=== PATIENT | female | born 1995 | race Caucasian/White ===

== ENCOUNTER 2017-06-24 05:47 | Inpatient (IN) | payer OTHER ==
[2017-06-23 13:35] LABS: ABSOLUTE LYMPHOCYTES (AUTO) 1.6 10^3/uL (0.5-4.7); ABSOLUTE MONOCYTES (AUTO) 0.7 10^3/uL (0.1-1.4); ABSOLUTE NEUT (AUTO) 8.7 10^3/uL (1.7-8.2); BASOPHILS % (AUTO) 0.4 % (0-2); EOSINOPHILS % (AUTO) 0.4 % (0-6); HEMATOCRIT 37.5 % (36.0-47.0); HEMOGLOBIN 12.9 g/dL (12.0-15.5); LYMPHOCYTES % (AUTO) 14.6 % (13-45); MEAN CORPUSCULAR HEMOGLOBIN 31.1 pg (27.0-33.4); MEAN CORPUSCULAR HGB CONC 34.3 g/dL (32.0-36.0); MEAN CORPUSCULAR VOLUME 91 fl (80-97); MONOCYTES % (AUTO) 6.4 % (3-13); PLATELET COUNT 251 10^3/uL (150-450); RED BLOOD COUNT 4.13 10^6/uL (3.72-5.28); RED CELL DISTRIBUTION WIDTH 13.2 % (11.5-14.0); SEGMENTED NEUTROPHILS % (AUTO) 78.2 % (42-78); TOTAL CELLS COUNTED % (AUTO) 100 %; WHITE BLOOD COUNT 11.2 10^3/uL (4.0-10.5)
[2017-06-23 13:42] LABS: APPEARANCE,URINE CLEAR; BILIRUBIN,URINE NEGATIVE (NEGATIVE); COLOR,URINE STRAW; GLUCOSE, URINE NEGATIVE (NEGATIVE); KETONES,URINE NEGATIVE (NEGATIVE); LEUKOCYTE ESTERASE,URINE NEGATIVE (NEGATIVE); NITRITE,URINE NEGATIVE (NEGATIVE); PROTEIN,URINE NEGATIVE (NEGATIVE); URINE SPECIFIC GRAVITY 1.003; UROBILINOGEN,URINE NEGATIVE mg/dL (<2.0)
[2017-06-23 13:55] LABS: URINE AMPHETAMINES SCREEN NEGATIVE; URINE BARBITURATES SCREEN NEGATIVE; URINE BENZODIAZEPINES SCREEN NEGATIVE; URINE COCAINE SCREEN NEGATIVE; URINE MARIJUANA (THC) SCREEN NEGATIVE; URINE METHADONE SCREEN NEGATIVE; URINE PHENCYCLIDINE SCREEN NEGATIVE
[2017-06-23 14:56] LABS: CHLAM PCR NOT DETECTED (NOT DETECT); GON PCR NOT DETECTED (NOT DETECT)
[2017-06-24] MEDS ORDERED: RINGERS SOLUTION,LACTATED 1,000 ML IV ONE (06:02)
[2017-06-24 06:18] LABS: APPEARANCE,URINE SLIGHTLY-CLOUDY; BILIRUBIN,URINE NEGATIVE (NEGATIVE); COLOR,URINE YELLOW; GLUCOSE, URINE NEGATIVE (NEGATIVE); KETONES,URINE NEGATIVE (NEGATIVE); LEUKOCYTE ESTERASE,URINE NEGATIVE (NEGATIVE); NITRITE,URINE NEGATIVE (NEGATIVE); PROTEIN,URINE NEGATIVE (NEGATIVE); URINE SPECIFIC GRAVITY 1.019; UROBILINOGEN,URINE NEGATIVE mg/dL (<2.0)
[2017-06-24 06:33] LABS: URINE AMPHETAMINES SCREEN NEGATIVE; URINE BARBITURATES SCREEN NEGATIVE; URINE BENZODIAZEPINES SCREEN NEGATIVE; URINE COCAINE SCREEN NEGATIVE; URINE MARIJUANA (THC) SCREEN NEGATIVE; URINE METHADONE SCREEN NEGATIVE; URINE PHENCYCLIDINE SCREEN NEGATIVE
[2017-06-24] MEDS ORDERED: BUPIVACAINE HCL 0.25 % INJ/PF (2.5 MG/1 ML) 30 ML VIAL ONE (07:55)
[2017-06-24] MEDS ORDERED: FENTANYL/BUPIVACAINE/NS/PF 0 MCG/0 ML RTUINJ EPI ONE (07:55)
[2017-06-24] MEDS ORDERED: EPHEDRINE SULFATE INJ 50 MG/1 ML AMPULE ONE ×3 (07:55→13:15)
[2017-06-24] MEDS ORDERED: LIDOCAINE 2% INJ-PF (20 MG/ML) 10 ML AMPUL ONE (08:02)
[2017-06-24] MEDS ORDERED: CEFAZOLIN 2 GM/D5W RTU 2 GM/50 ML RTUPB IV ONE ×2 (08:11→13:06)
[2017-06-24] MEDS ORDERED: TERBUTALINE SULFATE INJ/PF 1 MG/1 ML SDV SUBCUT ONE (08:47)
[2017-06-24] MEDS ORDERED: TERBUTALINE SULFATE INJ/PF 1 MG/1 ML SDV ONE (08:48)
[2017-06-24] MEDS ORDERED: LIDOCAINE 1% INJ-PF (10 MG/ML) 30 ML SDV ONE (09:00)
[2017-06-24] MEDS ORDERED: FENTANYL CITRATE INJ/PF 100 MCG/2 ML AMPUL ONE ×3 (09:02→13:16)
[2017-06-24] MEDS ORDERED: OXYTOCIN 10 UNIT/ML VIAL ONE ×3 (09:02→13:44)
[2017-06-24] MEDS ORDERED: MIDAZOLAM 2 MG/2 ML INJ ONE ×2 (09:03→13:16)
[2017-06-24] MEDS ORDERED: OXYTOCIN/NORMAL SALINE 0 UNIT/0 ML RTUINJ ONE (09:03)
[2017-06-24] MEDS ORDERED: ACETAMINOPHEN 0 ML IV ONE (09:03)
[2017-06-24] MEDS: RINGERS SOLUTION,LACTATED 1,000 ML IV PRN ×3 (09:04→16:04)
[2017-06-24] MEDS ORDERED: CITRIC ACID/SODIUM CITRATE ORAL SOLN 15 ML UDCUP ONE ×2 (09:08→13:06)
[2017-06-24] MEDS ORDERED: MISOPROSTOL 0.2 MG TABLET ONE (09:10)
[2017-06-24] MEDS ORDERED: TETRACAINE HCL/PF 20MG/2ML AMPULE (SPINAL) ONE (09:15)
[2017-06-24] MEDS ORDERED: SUCCINYLCHOLINE CHLORIDE INJ 200 MG/10 ML VIAL ONE (09:46)
[2017-06-24] MEDS ORDERED: OXYTOCIN/NORMAL SALINE 20 UNIT/1,000 ML RTUINJ IV PRN ×2 (11:14→14:12)
[2017-06-24] MEDS ORDERED: OXYTOCIN/NORMAL SALINE 20 UNIT/1,000 ML RTUINJ ONE ×2 (11:15→13:16)
[2017-06-24] MEDS ORDERED: KETOROLAC TROMETHAMINE INJ/PF 30 MG/1 ML SDV ONE (13:15)
[2017-06-24] MEDS ORDERED: ONDANSETRON HCL INJ/PF 4 MG/2 ML SDV ONE ×2 (13:16→17:53)
[2017-06-24] MEDS ORDERED: ACETAMINOPHEN 100 ML IV ONE (13:16)
[2017-06-24] MEDS ORDERED: PROPOFOL INJ 200 MG/20 ML VIAL IV ONE (13:44)
--- NOTE | 2017-06-24 14:11 | Brief Operative Note ---
BRIEF OPERATIVE REPORT DATE OF SURGERY: 06/24/17 TIME OF SURGERY: 14:00 PREOPERATIVE DIAGNOSIS: Cephalic presentation, non reassuring FHRTs, successful version POSTOPERATIVE DIAGNOSIS: GIANNA - delivered SURGEON: TANNA STEVENSON FINDINGS: Vertex female infant with cord above head and wrapped around body, Time of 1323. Intubation time 1321. Clear amniotic fluid. At delivery of placenta noted clot approximately 2cm (appears old with staining of amnion). Apgars 5/8. Weight 6#1oz. IVF 1500ml, EBL 600ml (QBL pending), UOP 200ml clear. COMPLICATIONS: none ESTIMATED BLOOD LOSS: 600ml TISSUE REMOVED OR ALTERED: placenta and cord sent to pathology TECHNICAL PROCEDURE: Primary C/S for NRFHTs
[2017-06-24] MEDS ORDERED: OXYCODONE-ACETAMINOPHEN 5-325 MG TABLET PO PRN (14:12)
[2017-06-24] MEDS ORDERED: DIPH/PERTUSS(ACELL)/TETANUS VAC/PF 0.5 ML SYR (>=10YO) IM PRN (14:12)
[2017-06-24] MEDS ORDERED: MEASLES,MUMPS&RUBELLA VACC/PF 0.5 ML VIAL SUBCUT PRN (14:12)
[2017-06-24] MEDS ORDERED: PROMETHAZINE HCL INJ 25 MG/1 ML VIAL IV PRN (14:12)
[2017-06-24] MEDS ORDERED: SIMETHICONE 80 MG TAB.CHEW PO PRN (14:12)
[2017-06-24] MEDS ORDERED: HYDROMORPHONE HCL INJ/PF 2 MG/ML AMPULE IV PRN (14:12)
[2017-06-24] MEDS ORDERED: ACETAMINOPHEN 325 MG TABLET PO PRN (14:12)
[2017-06-24] MEDS ORDERED: ACETAMINOPHEN 100 ML IV PRN (14:12)
[2017-06-24] MEDS: DOCUSATE SODIUM 100 MG CAPSULE PO SCH (17:33)
[2017-06-24] MEDS: OXYCODONE-ACETAMINOPHEN 5-325 MG TABLET PO PRN (23:14)
[2017-06-25] MEDS: KETOROLAC TROMETHAMINE INJ/PF 30 MG/1 ML SDV IV SCH ×2 (05:03→05:38)
[2017-06-25 07:43] LABS: HEMATOCRIT 27.6 % (36.0-47.0); MEAN CORPUSCULAR HEMOGLOBIN 31.6 pg (27.0-33.4); MEAN CORPUSCULAR HGB CONC 34.7 g/dL (32.0-36.0); MEAN CORPUSCULAR VOLUME 91 fl (80-97); PLATELET COUNT 196 10^3/uL (150-450); RED BLOOD COUNT 3.03 10^6/uL (3.72-5.28); RED CELL DISTRIBUTION WIDTH 13.2 % (11.5-14.0); WHITE BLOOD COUNT 15.5 10^3/uL (4.0-10.5)
[2017-06-25 07:44] LABS: HEMOGLOBIN 9.6 g/dL (12.0-15.5)
[2017-06-25] MEDS: PRENATAL VITAMIN W DHA CAPSULE PO SCH (09:32)
[2017-06-25] MEDS: DOCUSATE SODIUM 100 MG CAPSULE PO SCH ×2 (09:33→18:03)
--- NOTE | 2017-06-25 09:36 | PDOC PROGRESS REPORT ---
Subjective-OB Progress Note for:: 06/25/17 Subjective: sp p c/s day #1 Pt doing well, tolerating diet, lochia is stable, pain well controlled, voiding without difficulty, passing gas. Physical Exam (OB) Vital Signs: Temp Pulse Resp BP Pulse Ox 98.2 F 81 18 114/41 L 98 06/25/17 07:17 06/25/17 07:17 06/25/17 07:17 06/25/17 07:17 06/25/17 07:17 Intake & Output 06/24/17 06/25/17 06/26/17 06:59 06:59 06:59 Intake Total 1375 Output Total 3050 Balance -1675 Weight 73.03 kg - Dressing Removed: Yes Incision: Well Approximated Closure Type: Surgical Glue - Lochia Lochia Amount: Small 10-25 ml Lochia Color: Rubra/Red - Abdomen Description: Soft, Round Hernia Present: No Fundal Description: Firm, Midline Fundal Height: u/u - u/2 Objective-Diagnostic Laboratory: 06/25/17 07:20 06/25/17 07:20 WBC 15.5 H RBC 3.03 L Hgb 9.6 L D Hct 27.6 L MCV 91 MCH 31.6 MCHC 34.7 RDW 13.2 Plt Count 196 Assessment and Plan(PN) - Assessment and Plan (1) Breech malpresentation successfully converted to cephalic presentation Qualifiers: Fetus number: single or unspecified fetus Qualified Code(s): O32.1XX0 - Maternal care for breech presentation, not applicable or unspecified Is this a current diagnosis for this admission?: Yes Plan: routine pp care (2) Delivery by emergency section Is this a current diagnosis for this admission?: Yes Plan: routine pp care (3) Non-reassuring electronic monitoring tracing Is this a current diagnosis for this admission?: Yes Plan: routine pp care - Time Spent with Patient Time with patient: Less than 15 minutes Critical Time spent with patient: Less than 15 minutes Medications reviewed and adjusted accordingly: Yes - Disposition Anticipated Discharge: Home Within: within 48 hours
[2017-06-25] MEDS: OXYCODONE-ACETAMINOPHEN 5-325 MG TABLET PO PRN ×2 (09:40→16:19)
[2017-06-25] MEDS: IBUPROFEN 800 MG TABLET PO SCH ×3 (13:25→23:43)
[2017-06-26] MEDS: OXYCODONE-ACETAMINOPHEN 5-325 MG TABLET PO PRN ×2 (01:43→10:30)
[2017-06-26] MEDS: IBUPROFEN 800 MG TABLET PO SCH ×2 (07:15→12:31)
[2017-06-26 08:54] VITALS: BP 110/71
[2017-06-26] MEDS: PRENATAL VITAMIN W DHA CAPSULE PO SCH (10:29)
[2017-06-26] MEDS: DOCUSATE SODIUM 100 MG CAPSULE PO SCH (10:29)
--- NOTE | 2017-06-26 10:35 | PDOC DISCHARGE SUMMARY ---
Final Diagnosis Discharge Date: 06/26/17 - Final Diagnosis (1) Breech malpresentation successfully converted to cephalic presentation Is this a current diagnosis for this admission?: Yes (2) Delivery by emergency section Is this a current diagnosis for this admission?: Yes (3) Non-reassuring electronic monitoring tracing Is this a current diagnosis for this admission?: Yes Discharge Data - Discharge Medication Prescriptions: Ferrous Sulfate [[place]] 325 mg PO BID #60 tablet Ibuprofen [Motrin 800 mg Tablet] 800 mg PO Q8HP PRN #90 tablet PRN Reason: Oxycodone HCl/Acetaminophen [Percocet 5-325 mg Tablet] 1 tab PO Q4HP PRN #20 tablet PRN Reason: Home Medications: No122/Iron/Folic Acid [ Multi Tablet] 1 each PO QAM 06/23/17 Docusate Sodium [Colace 100 mg Capsule] 100 mg PO BID capsule 06/26/17 Ferrous Sulfate [[place]] 325 mg PO BID #60 tablet 06/26/17 Ibuprofen [Motrin 800 mg Tablet] 800 mg PO Q8HP PRN #90 tablet 06/26/17 Oxycodone HCl/Acetaminophen [Percocet 5-325 mg Tablet] 1 tab PO Q4HP PRN #20 tablet 06/26/17 Reason(s) for Admission: Other - external cephalic version Procedures: NST Intrapartum Procedure(s): : Low Cervical, Transverse - Diagnosis Test Laboratory: Temp Pulse Resp BP Pulse Ox 98.2 F 72 18 100/69 97 06/26/17 08:42 06/26/17 08:42 06/26/17 08:42 06/26/17 08:42 06/26/17 08:42 06/23/17 06/23/17 06/24/17 12:10 12:20 05:58 RBC 4.13 Hgb 12.9 Hct 37.5 Urine Opiates Screen NEGATIVE NEGATIVE 06/25/17 07:20 RBC 3.03 L Hgb 9.6 L D Hct 27.6 L Urine Opiates Screen - Discharge information/Instructions Discharge Activity: Balance Activity w/Rest, No Lifting/Push/Pulling, Pelvic Rest, No tub bath Discharge Diet: Regular Disposition: HOME, SELF-CARE Follow up with: [facility] in: 1, Weeks
--- NOTE | 2017-07-02 08:51 | Delivery Summary ---
Del Sum A-C Datetime Report Generated by CPN: 07/02/2017 08:50 DELIVERY PERSONNEL DELIVERY PERSONNEL: [id number] Delivery Doctor:: Kristen Robles MD Anesthesiologist:: Matt Bryant MD GEOSPATIAL PROGRAM MANAGEMENT OFFICER:: Reed Conway GEOSPATIAL PROGRAM MANAGEMENT OFFICER Labor and Delivery Nurse:: Taqueria Sprague RN Galley Boy:: America Noyola RN Nursery Nurse:: Magy Ochoa RN Calibration Checker/THEATER PROJECTIONIST: ST Nupur Calibration Checker/THEATER PROJECTIONIST: Missy Lambert CST Additional Personnel: : Brock Spencer RN MATERNAL INFORMATION Delivery Anesthesia: General Medications After Delivery: Pitocin Bolus-Please Comment; Other-Please Comment Meds After Delivery Comment: see anesthesia record Maternal Complications: Other LABOR SUMMARY EDC: 06/30/2017 00:00 No. Babies in Womb: 1 Attempted: No Labor Anesthesia: None LABOR INFORMATION Reason for Induction- Other: unstable lie Complete Dilatation: 06/24/2017 13:00 Oxytocin: Augmentation Group B Beta Strep: negative Antibiotics # of Doses: 2 Antibiotics Time of Last Dose: 1310 Name of Antibiotic Given: Ancef Steroids Given: None Reason Steroids Not Administered: Not Applicable MEMBRANES Membranes Rupture Method: Artificial Membranes Rupture Method: Artificial Rupture of Membranes: 06/24/2017 13:00 Length of Rupture (hr): 0.38 Amniotic Fluid Color: Clear Amniotic Fluid Amount: Large Amniotic Fluid Odor: None STAGES OF LABOR Stage 2 hr: 0 Stage 2 min: 23 Stage 3 hr: 0 Stage 3 min: 2 VAGINAL DELIVERY Episiotomy: None Laceration #1: None Laceration Extension #1: N/A Laceration Extension #1: N/A Laceration Repair: Not Applicable Sponge Count Correct: N/A Sharps Count Correct: N/A CSECTION DELIVERY Primary Indication: Nonreassuring Status CSection Urgency: Non-Scheduled CSection Incidence: Primary Labor: Labor Elective: Nonelective CSection Incision: Lower Uterine Transverse BABY A INFORMATION Delivery Date/Time: 06/24/2017 13:23 Method of Delivery: Born in Route : No : N/A Forceps: N/A Vacuum Extraction: N/A Shoulder Dystocia : No PRESENTATION/POSITION BABY A Presentation: Cephalic Cephalic Presentation: Vertex Vertex Position: n/a Breech Presentation: N/A PLACENTA INFORMATION BABY A Placenta Delivery Time : 06/24/2017 13:25 Placenta Method of Delivery: Manual Removal Placenta Status: Delivered SCORES BABY A Heart Rate 1 min: >100 bpm Resp Effort 1 min: Absent Reflex Irritability 1 min: Grimace Muscle Tone 1 min: Active Motion Color 1 min: Blue/Pale Resuscitation Effort 1 min: Tactile Stimulation; PPV/NCPAP SCORE 1 MIN: 5 Heart Rate 5 min: >100 bpm Resp Effort 5 min: Slow, Irregular Reflex Irritability 5 min: Cough or Sneeze or Pulls Away Muscle Tone 5 min: Active Motion Color 5 min: Body [place], Extremities Blue SCORE 5 MIN: 8 INFORMATION BABY A Gestational Age at Delivery: 39.1 Gestational Status: Full Term- 39- 40.6 Weeks Outcome : Liveborn Condition : Stable Sex: Female IDENTIFICATION BABY A Verification Date/Time: 06/24/2017 14:42 ID Band Number: [id number] Mother's Name Verified: Yes Infant RN Verifying Infant: Chloé Saint Lib[place] RN Additional Verifying Personnel: Elisabeth Salvador RN WEIGHT/LENGTH BABY A Birthweight (gm): 2755 Infant Weight (lb): 6 Infant Weight (oz): 1 Length (in): 18.75 Length (cm): 47.63 CORD INFORMATION BABY A No. Cord Vessels: 3 Nuchal Cord : body cord/forehead cord Cord Blood Taken: Yes-For Storage (Mom's Blood type +) Suction: Mouth; Nose ASSESSMENT BABY A Complications: Multiple Variable Decels Skin to Skin: Yes Skin to Skin: Yes Skin to Skin Time (min): 45 Care By: Desiree HUNT Transferred To: [facility]
--- NOTE | 2017-07-19 18:24 | Operative Report ---
Operative Report DATE OF SURGERY: 06/24/17 PREOPERATIVE DIAGNOSIS: Cephalic presentation, non reassuring FHRTs, successful version POSTOPERATIVE DIAGNOSIS: GIANNA - delivered OPERATION: Primary C/S for NRFHTs SURGEON: TANNA STEVENSON ANESTHESIA: GA TISSUE REMOVED OR ALTERED: placenta and cord sent to pathology COMPLICATIONS: none ESTIMATED BLOOD LOSS: 600ml INTRAOPERATIVE FINDINGS: Vertex female with cord above head and wrapped around body, Time of 1323. Intubation time 1321. Clear amniotic fluid. At delivery of placenta noted clot approximately 2cm (appears old with staining of amnion). Apgars 5/8. Weight 6#1oz. IVF 1500ml, EBL 600ml (QBL pending), UOP 200ml clear. PROCEDURE: Anesthesia provider: [Manny] Estimated blood loss: [600ml] Urine output: [200ml] IV fluids: [1500ml] Indications: [21yo at 39+1ega presents for External Cephalic Version which was easily performed and successful. ECV performed with spinal since anesthesia unable to obtain epidural. Patient then underwent induction and then cooks catheter removed due to heart rate decelerations and AROM performed to place internals. After AROM performed noted to have umbilical cord over head. Unable to reduce cord and consent obtained for urgent section due to occult cord and decelerations and remote from delivery. The risks, benefits, alternatives reviewed and patient desires to proceed with procedure. ] Procedure: The patient was taken to the operating room where general anesthesia was obtained and found to be adequate. She was then prepped and draped in the normal sterile fashion and placed in the dorsal supine position with a leftward tilt. A Pfannenstiel skin incision was then made and carried through to the underlying layers of the fascia with the scalpel. The fascia was incised in the midline and the incision extended laterally with the Mcconnell scissors. The superior aspect of the fascial incision was then grasped with Corona clamps elevated and the underlying rectus muscles dissected off [bluntly]. Attention was then turned to the inferior aspect of the fascial incision which in a similar fashion was grasped, tented up with Derek clamps, and the rectus muscles dissected off [bluntly]. The rectus muscles were then in the midline and the peritoneum at the amount identified and entered [bluntly]. The peritoneal incision was then extended superiorly and inferiorly with good visualization of the bladder. The bladder blade was inserted and the vesicouterine peritoneum identified grasped with Mongolian pickups and entered sharply with the Metzenbaum scissors. This incision was then extended laterally with the Metzenbaum scissors and a bladder flap created digitally. The bladder blade was then reinserted and the lower uterine segment incised in a transverse fashion with the scalpel. The uterine incision was then extended bluntly. The bladder blade was removed and the infant's head was delivered from cephalic presentation atraumatically. The nose and mouth were suctioned and the cord doubly clamped and cut. And the was handed off to waiting pediatricians. The placenta was then delivered spontaneously and the uterus exteriorized and cleared of all clots and debris. The uterine incision was then repaired with 1- 0 Vicryl in a running locked fashion. A second layer of the same suture was used to obtain hemostasis via imbrication of the initial layer. The bladder flap was then repaired with 3-0 chromic in a running fashion. The uterus was returned to the patient's abdomen and Interceed was placed overlying the uterine incision to prevent adhesions. The gutters were cleared of all clots and debris. All operative sites were noted to be hemostatic. The fascia was reapproximated with 0 Vicryl in a running fashion from each lateral edge to the midline. The skin was closed with 3-0 Monocryl in a running subcuticular fashion with overlying Dermabond for additional dressing as well as wound closure. The patient tolerated the procedure well. Sponge lap needle and instrument counts are correct times 2. 2 g of Ancef were given prior to skin incision. The patient was taken to the recovery area awake and in stable condition.
== END 2017-06-26 13:05 | disposition home or self-care (01) | DRG 766 ==
LOC: LR 05:47 → 2S 16:28
PROVIDERS: ADMIT Student in an Organized Health Care Education/Training Program; ATTEND Student in an Organized Health Care Education/Training Program
PROC: 10D00Z1 Extraction of Products of Conception, Low, Open Approach (ICD-10-PCS; principal; 2017-06-24)
PROC: 10S0XZZ Reposition Products of Conception, External Approach (ICD-10-PCS; 2017-06-24)
PROC: 4A1HXCZ Monitoring of Products of Conception, Cardiac Rate, External Approach (ICD-10-PCS; 2017-06-24)
DX: O76 Abnormality in fetal heart rate and rhythm complicating labor and delivery (principal); O32.1XX0 Maternal care for breech presentation, not applicable or unspecified; Z81.8 Family history of other mental and behavioral disorders; Z83.49 Family history of other endocrine, nutritional and metabolic diseases; Z3A.39 39 weeks gestation of pregnancy; Z37.0 Single live birth
CPT/HCPCS: 1958; 1961; 36415; 80307; 81001; 81005; 85025; 85027; 86850; 86900; 86901; 87491; 87591; 88307; 94760; 94799; C1726; J0131; J0330; J0690; J1170; J1885; J2250; J2405; J2590; J2704; J3010; J3105; J3490